=== PATIENT | female | born 1995 | race Hispanic/Latino ===

== ENCOUNTER 2017-03-19 09:56 | Emergency (ER) | payer SELFPAY ==
[2017-03-19 10:08] VITALS: BP 124/74
--- NOTE | 2017-03-19 12:43 | XRay Report ---
LEFT ANKLE RADIOGRAPHS INDICATION: Pain, swelling, twisting injury. COMPARISON: None similar. FINDINGS: AP, lateral and oblique left ankle radiographs demonstrate intact mortise, malleoli and talar dome contour. Normal soft tissues. CONCLUSION: No acute radiographic abnormality. Thank you for the opportunity to participate in this patient's care.
--- NOTE | 2017-03-19 12:57 | Emergency Department Report ---
Entered by ELVA MARIE, acting as scribe for KRYS DIAZ NP. ED Lower Extremity HPI - General Chief Complaint: Extremity Injury, Lower Stated Complaint: LT ANKLE PAIN Time Seen by Provider: 03/19/17 11:56 Source: patient Mode of arrival: Ambulatory Limitations: No Limitations - History of Present Illness Initial Comments: 21 y/o female presents to the ED c/o left ankle twisted that occurred 3 months ago and became worse today. Associated symptoms include left ankle pain and swelling but she denies fever and chills. 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 No aggravating or alleviating factors. NKDA. JOHN Complaint: ankle injury (left ankle) -: Sudden, This morning Injury: Ankle: Left Type of Injury: other (sprain) Place: home Severity: mild Improves With: nothing Worsens With: nothing Context: walking Associated Symptoms: swelling, other (left ankle pain) Treatments Prior to Arrival: other (none) - Related Data Home Medications Medication Instructions Recorded Confirmed Last Taken Vit-Fe Fumar-FA [ 1 tab PO DAILY 10/08/13 01/17/14 01/05/14 09: 00 Vitamin] 1 Acetaminophen [Tylenol] 325 mg PO Q4HR PRN 01/06/14 01/17/14 01/17/14 0700 Previous Rx's Medication Instructions Recorded Last Taken Type ALBUTEROL Inhaler [ProAir HFA 2 puff IH QID PRN #1 inhalation 10/08/13 01/06/14 02:00 Rx Inhaler] 2 predniSONE [Deltasone] 20 mg PO QDAY #3 tablet 10/08/13 Unknown Rx Ferrous Sulfate [Feosol 325 MG tab] 325 mg PO BID #60 tablet 01/19/14 Unknown Rx Ibuprofen [Motrin 600 MG tab] 600 mg PO Q6HR PRN #30 tablet 01/19/14 Unknown Rx Vit-Fe Fumar-FA [ 1 each PO QDAY #30 tablet 01/19/14 Unknown Rx Vitamin] oxyCODONE /ACETAMINOPHEN [Percocet 1 tab PO Q6H PRN #30 tablet 01/19/14 Unknown Rx 5/325 mg] Cephalexin [Keflex] 500 mg PO TID #21 capsule 09/30/14 Unknown Rx Cyclobenzaprine [Flexeril 10mg] 10 mg PO Q8H PRN #21 tablet 09/30/14 Unknown Rx HYDROcodone/APAP 5-325 [[place] 1 each PO Q6HR PRN #16 tablet 09/30/14 Unknown Rx 5-325 mg TAB] Albuterol Sulfate [Ventolin HFA] 2 puff IH Q4H PRN #1 hfa.aer.ad 08/21/15 Unknown Rx Loratadine [Claritin] 10 mg PO DAILY #30 tablet 08/21/15 Unknown Rx predniSONE [Deltasone] 20 mg PO TID #12 tab 08/21/15 Unknown Rx Butalb/Acetamin/Caff 50-325-40 1 each PO Q4H PRN #20 tablet 08/23/16 Unknown Rx [Fioricet] Cyclobenzaprine [Flexeril] 10 mg PO TID PRN #30 tablet 03/19/17 Unknown Rx Naproxen [Naprosyn TAB] 500 mg PO BID PRN #60 tablet 03/19/17 Unknown Rx Allergies Allergy/AdvReac Type Severity Reaction Status Date / Time No Known Allergies Allergy Verified 10/08/13 21:10 ED Review of Systems Comment: All other systems reviewed and negative Constitutional: denies: chills, fever Musculoskeletal: other (left ankle pain) Skin: other (left ankle swelling) ED Past Medical Hx - Past Medical History Previous Medical History?: Yes Hx Hypertension: No Hx Heart Attack/AMI: No Hx Diabetes: No Hx Deep Vein Thrombosis: No Hx Liver Disease: No Hx Renal Disease: No Hx Sickle Cell Disease: No Hx Seizures: No Hx Asthma: Yes Hx COPD: No Hx HIV: No - Surgical History Past Surgical History?: Yes Hx Pacemaker: No Hx Internal Defibrillator: No - Social History Smoking Status: Never Smoker Substance Use Type: None - Medications Home Medications: Home Medications Medication Instructions Recorded Confirmed Last Taken Type ALBUTEROL Inhaler [ProAir HFA 2 puff IH QID PRN #1 inhalation 10/08/13 01/17/14 01/06/14 02:00 Rx Inhaler] 2 Vit-Fe Fumar-FA [ 1 tab PO DAILY 10/08/13 01/17/14 01/05/14 09: 00 History Vitamin] 1 predniSONE [Deltasone] 20 mg PO QDAY #3 tablet 10/08/13 01/17/14 Unknown Rx Acetaminophen [Tylenol] 325 mg PO Q4HR PRN 01/06/14 01/17/14 01/17/14 History 0700 Ferrous Sulfate [Feosol 325 MG tab] 325 mg PO BID #60 tablet 01/19/14 Unknown Rx Ibuprofen [Motrin 600 MG tab] 600 mg PO Q6HR PRN #30 tablet 01/19/14 Unknown Rx Vit-Fe Fumar-FA [ 1 each PO QDAY #30 tablet 01/19/14 Unknown Rx Vitamin] oxyCODONE /ACETAMINOPHEN [Percocet 1 tab PO Q6H PRN #30 tablet 01/19/14 Unknown Rx 5/325 mg] Cephalexin [Keflex] 500 mg PO TID #21 capsule 09/30/14 Unknown Rx Cyclobenzaprine [Flexeril 10mg] 10 mg PO Q8H PRN #21 tablet 09/30/14 Unknown Rx HYDROcodone/APAP 5-325 [[place] 1 each PO Q6HR PRN #16 tablet 09/30/14 Unknown Rx 5-325 mg TAB] Albuterol Sulfate [Ventolin HFA] 2 puff IH Q4H PRN #1 hfa.aer.ad 08/21/15 Unknown Rx Loratadine [Claritin] 10 mg PO DAILY #30 tablet 08/21/15 Unknown Rx predniSONE [Deltasone] 20 mg PO TID #12 tab 08/21/15 Unknown Rx Butalb/Acetamin/Caff 50-325-40 1 each PO Q4H PRN #20 tablet 08/23/16 Unknown Rx [Fioricet] Cyclobenzaprine [Flexeril] 10 mg PO TID PRN #30 tablet 03/19/17 Unknown Rx Naproxen [Naprosyn TAB] 500 mg PO BID PRN #60 tablet 03/19/17 Unknown Rx ED Physical Exam - General Limitations: No Limitations General appearance: alert, in no apparent distress - Head Head exam: Present: atraumatic, normocephalic - Eye Eye exam: Present: normal appearance, EOMI - ENT ENT exam: Present: normal exam - Neck Neck exam: Present: normal inspection, full ROM - Respiratory Respiratory exam: Present: normal lung sounds bilaterally. Absent: wheezes, rales, rhonchi - Cardiovascular Cardiovascular Exam: Present: regular rate, normal rhythm, normal heart sounds. Absent: rubs, gallop - GI/Abdominal GI/Abdominal exam: Present: soft, normal bowel sounds. Absent: tenderness, guarding, rebound - Extremities Exam Extremities exam: Present: other (left ankle sprain, painful ambulation) - Expanded Lower Extremity Exam Left Ankle exam: Present: tenderness, swelling. Absent: ecchymosis - Back Exam Back exam: Present: normal inspection, full ROM - Neurological Exam Neurological exam: Present: alert, oriented X3 - Psychiatric Psychiatric exam: Present: normal affect, normal mood - Skin Skin exam: Present: warm, dry, other (minimal swelling). 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 pain at this time 2/10 aching pt denies pain meds at this time. ankle xray: negative no fracture soft tissue normal Plan xray, NSIADs, Lan wrap , ankle rehab exercises refer to orthopedics in not improving with self care. pt verbalize understanding and agreement with treatment and discharge plan. ED Disposition Clinical Impression: Ankle sprain, Chronic ankle pain Disposition: TO HOME OR SELFCARE Is pt being admited?: No Does the pt Need Aspirin: No Condition: Good Instructions: Ankle Exercises (GEN) Prescriptions: Cyclobenzaprine [Flexeril] 10 mg PO TID PRN #30 tablet PRN Reason: Spasms Naproxen [Naprosyn TAB] 500 mg PO BID PRN #60 tablet PRN Reason: Pain Referrals: PRIMARY CARE,MD [Primary Care Provider] - 3-5 Days Forms: Work/School Release Form(ED) Time of Disposition: 12:56 This documentation as recorded by the FRANK fernandez ELIZABETH,accurately reflects the service I personally performed and the decisions made by , KRYS DIAZ, DAVID.
== END 2017-03-19 13:05 | disposition home or self-care (01) ==
LOC: ED 09:56
DX: S93.402A Sprain of unspecified ligament of left ankle, initial encounter (principal); G89.29 Other chronic pain; J45.909 Unspecified asthma, uncomplicated; X58.XXXA Exposure to other specified factors, initial encounter; Y93.89 Activity, other specified; Y99.8 Other external cause status; Y92.009 Unspecified place in unspecified non-institutional (private) residence as the place of occurrence of the external cause

== ENCOUNTER 2017-10-09 21:55 | Emergency (ER) | payer OTHER ==
[2017-10-10] MEDS ORDERED: MOTRIN PO ONE (00:34)
--- NOTE | 2017-10-10 02:54 | Emergency Department Report ---
ED General Adult HPI - General Chief complaint: Upper Respiratory Infection Stated complaint: FEVER,SORE THROAT,EARACHE Time Seen by Provider: 10/10/17 00:22 Source: patient Mode of arrival: Ambulatory Limitations: No Limitations - History of Present Illness Initial comments: Patient is a 22-year-old female who is presenting with upper respiratory infection symptoms. Patient states that she has been having symptoms for 2 days. Patient states that she has a sore throat and earaches body aches as well. Patient states the pain with swallowing department 5 out of 10. Patient denies nausea vomiting diarrhea or cough at this time. -: Gradual, days(s) (2 days) Severity scale (0 -10): 7 - Related Data Home Medications Medication Instructions Recorded Confirmed Last Taken Vit-Fe Fumar-FA [ 1 tab PO DAILY 10/08/13 01/17/14 01/05/14 09: 00 Vitamin] 1 Acetaminophen [Tylenol] 325 mg PO Q4HR PRN 01/06/14 01/17/14 01/17/14 0700 Previous Rx's Medication Instructions Recorded Last Taken Type ALBUTEROL Inhaler [ProAir HFA 2 puff IH QID PRN #1 inhalation 10/08/13 01/06/14 02:00 Rx Inhaler] 2 predniSONE [Deltasone] 20 mg PO QDAY #3 tablet 10/08/13 Unknown Rx Ferrous Sulfate [Feosol 325 MG tab] 325 mg PO BID #60 tablet 01/19/14 Unknown Rx Ibuprofen [Motrin 600 MG tab] 600 mg PO Q6HR PRN #30 tablet 01/19/14 Unknown Rx Vit-Fe Fumar-FA [ 1 each PO QDAY #30 tablet 01/19/14 Unknown Rx Vitamin] oxyCODONE /ACETAMINOPHEN [Percocet 1 tab PO Q6H PRN #30 tablet 01/19/14 Unknown Rx 5/325 mg] Cephalexin [Keflex] 500 mg PO TID #21 capsule 09/30/14 Unknown Rx Cyclobenzaprine [Flexeril 10mg] 10 mg PO Q8H PRN #21 tablet 09/30/14 Unknown Rx HYDROcodone/APAP 5-325 [[place] 1 each PO Q6HR PRN #16 tablet 09/30/14 Unknown Rx 5-325 mg TAB] Albuterol Sulfate [Ventolin HFA] 2 puff IH Q4H PRN #1 hfa.aer.ad 08/21/15 Unknown Rx Loratadine [Claritin] 10 mg PO DAILY #30 tablet 08/21/15 Unknown Rx predniSONE [Deltasone] 20 mg PO TID #12 tab 08/21/15 Unknown Rx Butalb/Acetamin/Caff 50-325-40 1 each PO Q4H PRN #20 tablet 08/23/16 Unknown Rx [Fioricet] Cyclobenzaprine [Flexeril] 10 mg PO TID PRN #30 tablet 03/19/17 Unknown Rx Naproxen [Naprosyn TAB] 500 mg PO BID PRN #60 tablet 03/19/17 Unknown Rx HYDROcodone/APAP 5-325 [[place] 1 each PO Q6HR PRN #10 tablet 10/10/17 Unknown Rx 5/325] predniSONE [Deltasone] 20 mg PO QDAY #5 tab 10/10/17 Unknown Rx Allergies Allergy/AdvReac Type Severity Reaction Status Date / Time No Known Allergies Allergy Verified 10/09/17 22:29 ED Review of Systems ROS: Stated complaint: FEVER,SORE THROAT,EARACHE Other details as noted in HPI Comment: All other systems reviewed and negative ED Past Medical Hx - Past Medical History Hx Hypertension: No Hx Heart Attack/AMI: No Hx Diabetes: No Hx Deep Vein Thrombosis: No Hx Liver Disease: No Hx Renal Disease: No Hx Sickle Cell Disease: No Hx Seizures: No Hx Asthma: Yes Hx COPD: No Hx HIV: No - Surgical History Hx Pacemaker: No Hx Internal Defibrillator: No - Social History Smoking Status: Never Smoker Substance Use Type: None - Medications Home Medications: Home Medications Medication Instructions Recorded Confirmed Last Taken Type ALBUTEROL Inhaler [ProAir HFA 2 puff IH QID PRN #1 inhalation 10/08/13 01/17/14 01/06/14 02:00 Rx Inhaler] 2 Vit-Fe Fumar-FA [ 1 tab PO DAILY 10/08/13 01/17/14 01/05/14 09: 00 History Vitamin] 1 predniSONE [Deltasone] 20 mg PO QDAY #3 tablet 10/08/13 01/17/14 Unknown Rx Acetaminophen [Tylenol] 325 mg PO Q4HR PRN 01/06/14 01/17/14 01/17/14 History 0700 Ferrous Sulfate [Feosol 325 MG tab] 325 mg PO BID #60 tablet 01/19/14 Unknown Rx Ibuprofen [Motrin 600 MG tab] 600 mg PO Q6HR PRN #30 tablet 01/19/14 Unknown Rx Vit-Fe Fumar-FA [ 1 each PO QDAY #30 tablet 01/19/14 Unknown Rx Vitamin] oxyCODONE /ACETAMINOPHEN [Percocet 1 tab PO Q6H PRN #30 tablet 01/19/14 Unknown Rx 5/325 mg] Cephalexin [Keflex] 500 mg PO TID #21 capsule 09/30/14 Unknown Rx Cyclobenzaprine [Flexeril 10mg] 10 mg PO Q8H PRN #21 tablet 09/30/14 Unknown Rx HYDROcodone/APAP 5-325 [[place] 1 each PO Q6HR PRN #16 tablet 09/30/14 Unknown Rx 5-325 mg TAB] Albuterol Sulfate [Ventolin HFA] 2 puff IH Q4H PRN #1 hfa.aer.ad 08/21/15 Unknown Rx Loratadine [Claritin] 10 mg PO DAILY #30 tablet 08/21/15 Unknown Rx predniSONE [Deltasone] 20 mg PO TID #12 tab 08/21/15 Unknown Rx Butalb/Acetamin/Caff 50-325-40 1 each PO Q4H PRN #20 tablet 08/23/16 Unknown Rx [Fioricet] Cyclobenzaprine [Flexeril] 10 mg PO TID PRN #30 tablet 03/19/17 Unknown Rx Naproxen [Naprosyn TAB] 500 mg PO BID PRN #60 tablet 03/19/17 Unknown Rx HYDROcodone/APAP 5-325 [[place] 1 each PO Q6HR PRN #10 tablet 10/10/17 Unknown Rx 5/325] predniSONE [Deltasone] 20 mg PO QDAY #5 tab 10/10/17 Unknown Rx ED Physical Exam - General Limitations: No Limitations General appearance: alert, in no apparent distress - Head Head exam: Present: atraumatic, normocephalic - Eye Eye exam: Present: normal appearance - ENT ENT exam: Present: mucous membranes moist. Absent: normal exam (patient has mild pharyngeal erythema with tonsillar swelling there are no exudates present) - Neck Neck exam: Present: normal inspection - Respiratory Respiratory exam: Present: normal lung sounds bilaterally. Absent: respiratory distress - Cardiovascular Cardiovascular Exam: Present: regular rate, normal rhythm. Absent: systolic murmur, diastolic murmur, rubs, gallop - GI/Abdominal GI/Abdominal exam: Present: soft, normal bowel sounds - Extremities Exam Extremities exam: Present: normal inspection - Back Exam Back exam: Present: normal inspection - Neurological Exam Neurological exam: Present: alert, oriented X3 - Psychiatric Psychiatric exam: Present: normal affect, normal mood - Skin Skin exam: Present: warm, dry, intact, normal color. Absent: rash ED Course Vital Signs 10/09/17 10/10/17 22:29 01:03 Temperature 98.6 F Pulse Rate 91 H Respiratory 18 18 Rate Blood Pressure 112/67 O2 Sat by Pulse 98 Oximetry ED Medical Decision Making - Lab Data Rapid strep and influenza A and B are both negative Critical care attestation.: If time is entered above; I have spent that time in minutes in the direct care of this critically ill patient, excluding procedure time. ED Disposition Clinical Impression: Viral pharyngitis Disposition: DC-01 TO HOME OR SELFCARE Is pt being admited?: No Does the pt Need Aspirin: No Condition: Fair Instructions: Pharyngitis (ED) Prescriptions: HYDROcodone/APAP 5-325 [[place] 5/325] 1 each PO Q6HR PRN #10 tablet PRN Reason: Pain predniSONE [Deltasone] 20 mg PO QDAY #5 tab Referrals: FRANK MAGANA MD [Primary Care Provider] - 3-5 Days
[2017-10-10 03:16] VITALS: BP 119/64
== END 2017-10-10 03:19 | disposition home or self-care (01) ==
LOC: ED 21:55
DX: J02.8 Acute pharyngitis due to other specified organisms (principal); B97.89 Other viral agents as the cause of diseases classified elsewhere; J45.909 Unspecified asthma, uncomplicated
CPT/HCPCS: 87116; 87400; 87430; 99283